=== PATIENT | female | born 1970 | race Caucasian/White ===

== ENCOUNTER 2016-12-28 12:32 | Emergency (ER) | payer BC ==
--- NOTE | 2016-12-28 13:23 | UC ---
Skin Complaint HPI - HPI Summary HPI Summary: 46 YEAR OLD FEMALE PRESENTS WITH RIGHT RED SWOLLEN THUMB. - History of Current Complaint Chief Complaint: UCSkin Time Seen by Provider: 12/28/16 12:58 Stated Complaint: RED SWOLLEN THUMB Hx Obtained From: Patient Onset/Duration: Sudden Onset Skin Exposure Onset/Duration: Hours Ago Timing: Constant Onset Severity: Moderate Current Severity: Moderate Pain Scale Used: 0-10 Numeric - 7 - Allergy/Home Medications Allergies/Adverse Reactions: Allergies Allergy/AdvReac Type Severity Reaction Status Date / Time LATEX Allergy Rash And Uncoded 09/25/15 08:38 Itching Home Medications: Home Medications Linaclotide [Linzess] 1 cap PO DAILY 12/28/16 [History Confirmed 12/28/16] Review of Systems Constitutional: Negative Skin: Other - RIGHT THUMB PARONYCHIA Eyes: Negative ENT: Negative Respiratory: Negative Cardiovascular: Negative Gastrointestinal: Negative Genitourinary: Negative Motor: Negative Neurovascular: Negative Musculoskeletal: Negative Neurological: Negative Psychological: Negative All Other Systems Reviewed And Are Negative: Yes PMH/Surg Hx/FS Hx/Imm Hx Previously Healthy: Yes - Surgical History Surgical History: Yes Surgery Procedure, Year, and Place: TUBAL LIGATION 1999. [place] [facility] [place] Family History Known Family History: Positive: None - Social History Alcohol Use: Daily Alcohol Amount: 1-2 WINE DAILY Substance Use Type: Marijuana Substance Use Comment - Amount & Last Used: 09/19/15 Smoking Status (MU): Never Smoked Tobacco Physical Exam Triage Information Reviewed: Yes Vital Signs: Initial Vital Signs Temp 36.8 C 12/28/16 13:14 Pulse 71 12/28/16 13:14 Resp 16 12/28/16 13:14 BP 128/82 12/28/16 13:14 Pulse Ox 100 12/28/16 13:14 Eye Exam: Normal ENT Exam: Normal Dental Exam: Normal Neck exam: Normal Neck: Positive: 1 Respiratory Exam: Normal Cardiovascular Exam: Normal Abdominal Exam: Normal Musculoskeletal Exam: Normal Neurological Exam: Normal Psychological Exam: Normal Skin: Positive: Other - RIGHT THUMB SWELLING/PAIN Course/Dx - Course Course Of Treatment: RIGHT THUMB PARONYCHIA, THUMB CLEANED WITH BETADINE, 10 CC OF LIDOCAINE FOR DIGITAL BLOCK, #11 BLADE, BLOODY DISCHARGE CULTURED AND SENT TO LAB, STERILE TECHNIQUE, DRESSING APPLIED. - Diagnoses Provider Diagnoses: RIGHT THUMB PARONYCHIA Discharge - Discharge Plan Condition: Stable Disposition: HOME Prescriptions: Sulfamethox/Trimethoprim DS* [Bactrim DS 800/160 TAB*] 1 tab PO BID #14 tab Patient Education Materials: Gustavo (ED) Referrals: Dave Rodriguez MD [Primary Care Provider] -
[2016-12-28 13:24] VITALS: BP 128/82
[2016-12-28] MEDS ORDERED: Lidocaine 2% PF * 5 ML VIAL INJ ONE (13:26)
[2016-12-28] MEDS ORDERED: Lidocaine 2% PF * 5 ML VIAL IV ONE (13:31)
== END 2016-12-28 14:22 | disposition home or self-care (01) ==
LOC: UCEAST 12:32
DX: L03.011 Cellulitis of right finger (principal); Z91.040 Latex allergy status; F12.90 Cannabis use, unspecified, uncomplicated
CPT/HCPCS: 10060; 87070; 87077; 87205; 99212; G0463